=== PATIENT | female | born 1945 | race Caucasian/White ===

== ENCOUNTER → 2018-12-23 08:41 | Outpatient (CLI) | payer MEDICARE ==
--- NOTE | 2018-12-28 14:40 | EC ---
PATIENT:HANS MCCULLOUGH DATE OF SERVICE: 12/23/18 SEX: F MEDICAL RECORD: [id number] DATE OF : [birth year] [facility] AGE [facility]: 73 ADMISSION DATE: 12/23/18 REFERRING PHYSICIAN: INTERPRETING PHYSICIAN: FLORY DIEZ MD ECHOCARDIOGRAM REPORT ECHO CHARGES 4 ECHO COMPLETE Date: 12/23/18 CLINICAL DIAGNOSIS: HTN H/O CAD ECHOCARDIOGRAPHIC MEASUREMENTS (adult normal given) AC root (d.<3.7cm) 2.6 cm LV Septum d (<1.2 cm> 1.4 cm Valve Excursion 1.7 cm LV Septum (systole) 1.9 cm Left Atria (s.<4.0cm> 3.3 cm LVPW d(<1.2cm) 1.4 cm RV (d.<2.3cm) 2.8 cm LVPW (sytole) 1.9 cm LV diastole(<5.6CM) 4.0 cm MV E-F(>70mm/sec) cm LV systole 1.5 cm LVOT Diameter 1.5 cm MV exc.(>10mm) cm Est.ejection fraction (50-75%) % DOPPLER: LVIT cm/sec A 113 cm/sec E 90.0 cm/sec LA cm/sec RVSP 25.0 mmHg LVOT 125 cm/sec AOP1/2T m/s Asc. Ao 164 cm/sec RVOT 74.0 cm/sec RA cm/sec PA 98.0 cm/sec AV Gradient Peak 11.0 mmHg AV Mean 4.9 mmHg AV Area 1.4 cm MV Gradient Peak 6.1 mmHg MV Mean 1.8 mmHg MV Area cm COMMENTS: OP - HC Zone Manager: 1 TOM PAT Clerical Warehouseman: 3 Dr. Pickard TAPE# PACS Pericardial Effusion N DATE OF SERVICE: Adequate 2D, color flow, spectral Doppler, and M-mode. Mild LVH. LV internal dimension is normal. Wall motion is normal. EF is greater than or equal to 55%. Aortic valve is tricuspid. No evidence of stenosis by Doppler interrogation. Left atrium is normal. Mitral valve shows no prolapse. Trace MR. Right-sided chamber grossly normal. Trace TR. TRANSINT:[id number] Voice Confirmation ID: [id number] DOCUMENT ID: [id number] ECHOCARDIOGRAM REPORT [id number] HANS MCCULLOUGH GREGORY A MD at 1440 CC: [id number] DICTATION DATE: 12/27/18 1130 SMALL BATTERY PLATE ASSEMBLER: 12/27/18 1207 DEP CLI 12/23/18 [facility] [address] [place] [address]
== END | disposition home or self-care (01) ==
LOC: D.HCCARDIO 08:30
PROVIDERS: ATTEND Internal Medicine Interventional Cardiology
DX: I25.10 Atherosclerotic heart disease of native coronary artery without angina pectoris (principal)

== ENCOUNTER → 2021-02-24 07:59 | Outpatient (CLI) | payer MEDICARE ==
--- NOTE | 2021-02-25 14:07 | EC ---
PATIENT:HANS MCCULLOUGH DATE OF SERVICE: 02/24/21 SEX: F MEDICAL RECORD: [id number] DATE OF : [birth year] [facility] AGE OF PAT[facility]: 75 ADMISSION DATE: 02/24/21 REFERRING PHYSICIAN: INTERPRETING PHYSICIAN: FLORY DIEZ MD ECHOCARDIOGRAM REPORT ECHO CHARGES 4 ECHO COMPLETE Date: 02/24/21 CLINICAL DIAGNOSIS: CAD/PVD ASSESS EF/MITRAL AND TRICUPSID REGURG ECHOCARDIOGRAPHIC MEASUREMENTS (adult normal given) AC root (d.<3.7cm) 3.1 cm LV Septum d (<1.2 cm> 1.0 cm Valve Excursion 1.4 cm LV Septum (systole) 1.1 cm Left Atria (s.<4.0cm> 3.2 cm LVPW d(<1.2cm) 1.2 cm RV (d.<2.3cm) 3.3 cm LVPW (sytole) 1.3 cm LV diastole(<5.6CM) 4.5 cm MV E-F(>70mm/sec) cm LV systole 3.0 cm LVOT Diameter 1.6 cm MV exc.(>10mm) 1.2 cm Est.ejection fraction (50-75%) % DOPPLER: LVIT cm/sec A 100.0cm/sec E 110.0 cm/sec LA cm/sec RVSP 33 mmHg LVOT 91 cm/sec AOP1/2T m/s Asc. Ao 131 cm/sec RVOT 91 cm/sec RA cm/sec PA 108 cm/sec AV Gradient Peak 6.84 mmHg AV Mean 3.63 mmHg AV Area 1.5 cm MV Gradient Peak 5.71 mmHg MV Mean 1.88 mmHg MV Area cm COMMENTS: Director Of Hospitality: 2 MAHOGANY TEMPLE Account Executive Software Sales: 3 Dr. Pickard TAPE# PACS Pericardial Effusion N DATE OF SERVICE: Borderline LVH. LV internal dimensions are normal. Wall motion normal. EF greater than or equal to 55%. Aortic valve is tricuspid. No evidence of stenosis by Doppler interrogation. Left atrium is normal at 3.2 cm. Mitral valve shows no prolapse. Trace MR. Right-sided chambers are grossly normal. Trace TR. TRANSINT:[id number] Voice Confirmation ID: [id number] DOCUMENT ID: [id number] ECHOCARDIOGRAM REPORT [id number] SADIA,FLORY LUGO MD at 1407 CC: [id number] DICTATION DATE: 02/24/21 1639 GAME DEVELOPER: 02/24/21 2244 DEP CLI 02/24/21 [facility] [address] [place] [address]
== END | disposition home or self-care (01) ==
LOC: D.HCCECHO 07:59
PROVIDERS: ATTEND Internal Medicine Interventional Cardiology
DX: I25.10 Atherosclerotic heart disease of native coronary artery without angina pectoris (principal)